=== PATIENT | male | born 1945 | race Caucasian/White ===

== ENCOUNTER → 2017-04-28 | Outpatient (REF) | payer OTHER ==
[2017-04-28 18:44] LABS: FERRITIN 5 NG/ML (26-388)
== END ==
LOC: M LAB REF 17:23
DX: D64.9 Anemia, unspecified (principal)
CPT/HCPCS: 82728

== ENCOUNTER → 2017-08-13 | Outpatient (REF) | payer OTHER ==
[2017-08-15 08:06] LABS: LDL DIRECT 57 mg/dL (0-99)
== END ==
LOC: M LAB REF 19:30
DX: E78.00 Pure hypercholesterolemia, unspecified (principal)
CPT/HCPCS: 83721

== ENCOUNTER → 2017-09-21 | Outpatient (REF) | payer OTHER ==
[2017-09-21 20:04] LABS: FERRITIN 22 NG/ML (26-388)
== END ==
LOC: M LAB REF 18:45
DX: D50.9 Iron deficiency anemia, unspecified (principal)
CPT/HCPCS: 82728

== ENCOUNTER → 2018-01-20 | Outpatient (REF) | payer OTHER ==
[2018-01-23 00:06] LABS: LDL DIRECT 70 mg/dL (0-99)
== END ==
LOC: M LAB REF 16:16
DX: E78.00 Pure hypercholesterolemia, unspecified (principal)
CPT/HCPCS: 83721

== ENCOUNTER 2018-12-30 08:56 | Day surgery (SDC) | payer MEDICARE ==
[~2018-12-30] VITALS: Ht 182.9 cm; Wt 111.1 kg
[~2018-12-30 08:56] MED LIST: ALIG4CAP PO; AMIL5TAB4 PO; ASPI81TA26 PO; ATOR1TAB21 PO; CALC600C3 PO; CENT1TAB PO; FAMO40TA3 PO; FENO145T13 PO; FERR325T3 PO; GLIP5TAB20 PO; KP F1200 PO; LEVE1INJ5 SC; LISI-538 PO; LOPR1TAB6 PO; MAGN64TASA PO; METF500T13 PO; NEUR300C PO; NS 1,000 ML IV ONE; OMEP-218 PO; TRUL0.5I SC
[2018-12-30] MEDS ORDERED: LIDOCAINE 2% INJ 100 MG/5 ML SDV (FOR ANES.) As Ordered ONE (09:37)
[2018-12-30] MEDS ORDERED: PROPOFOL 200 MG/20 ML VIAL As Ordered ONE (09:37)
--- NOTE | 2018-12-30 10:36 | ROOR ---
Patient Name: Campos Jauregui Procedure Date: 12/30/2018 10:16 AM Date of : 1945 Age: 73 [facility]: [facility] Gender: Male Note Status: Finalized Procedure: Colonoscopy Indications: Screening for colorectal malignant neoplasm Providers: Cosmo Morton Jr, MD Referring MD: Kaz Gutierrez MD Requesting Provider: Medicines: Propofol per Anesthesia Complications: No immediate complications. Procedure: Pre-Anesthesia Assessment: - Prior to the procedure, a History and Physical was performed, and patient medications and allergies were reviewed. The patient is competent. The risks and benefits of the procedure and the sedation options and risks were discussed with the patient. All questions were answered and informed consent was obtained. Patient identification and proposed procedure were verified by the physician and the nurse in the pre-procedure area and in the procedure room. Mental Status Examination: alert and oriented. Airway Examination: normal oropharyngeal airway and neck mobility. Respiratory Examination: clear to auscultation. CV Examination: normal. ASA Grade Assessment: II - A patient with mild systemic disease. After reviewing the risks and benefits, the patient was deemed in satisfactory condition to undergo the procedure. The anesthesia plan was to use moderate sedation / analgesia (conscious sedation). Immediately prior to administration of medications, the patient was re-assessed for adequacy to receive sedatives. The heart rate, respiratory rate, oxygen saturations, blood pressure, adequacy of pulmonary ventilation, and response to care were monitored throughout the procedure. The physical status of the patient was re-assessed after the procedure. The Colonoscope was introduced through the anus and advanced to the cecum, identified by appendiceal orifice and ileocecal valve. The colonoscopy was performed without difficulty. The patient tolerated the procedure well. The quality of the bowel preparation was adequate. Findings: The rectum, recto-sigmoid colon, descending colon, transverse colon, ascending colon, appendiceal orifice and ileocecal valve appeared normal. A diminutive polyp was found in the cecum. The polyp was removed with a jumbo cold forceps. Resection and retrieval were complete. A few small and large-mouthed diverticula were found in the sigmoid colon, ascending colon and cecum. Non-bleeding internal hemorrhoids were found during endoscopy. The hemorrhoids were moderate. Impression: - The rectum, recto-sigmoid colon, descending colon, transverse colon, ascending colon, appendiceal orifice and ileocecal valve are normal. - One diminutive polyp in the cecum, removed with a jumbo cold forceps. Resected and retrieved. - Diverticulosis in the sigmoid colon. - Non-bleeding internal hemorrhoids. Recommendation: - Repeat colonoscopy in 5-10 years for surveillance based on pathology results. - Telephone my office for pathology results in 1 week. Cosmo Morton MD Cosmo Morton Jr, MD 12/30/2018 10:35:54 AM Electronically signed by Cosmo Morton Jr, MD Number of Addenda: 0 Note Initiated On: 12/30/2018 10:16 AM Estimated Blood Loss: Estimated blood loss: none.
[2018-12-30 10:50] VITALS: BP 145/73
== END 2018-12-30 11:02 | disposition home or self-care (01) ==
LOC: M OPP 08:56
PROVIDERS: ATTEND Surgery
DX: Z12.11 Encounter for screening for malignant neoplasm of colon (principal); K64.8 Other hemorrhoids; D12.0 Benign neoplasm of cecum; K57.30 Diverticulosis of large intestine without perforation or abscess without bleeding; I10 Essential (primary) hypertension; Z79.4 Long term (current) use of insulin; Z79.82 Long term (current) use of aspirin; Z79.899 Other long term (current) drug therapy; Z86.73 Personal history of transient ischemic attack (TIA), and cerebral infarction without residual deficits

== ENCOUNTER → 2021-01-16 | Outpatient (CLI) | payer MEDICARE ==
[~2021-01-16] MED LIST changes: -FENO145T13 PO; +FENO145T7 PO; -LISI-538 PO; +LISI20TA33 PO; -NS 1,000 ML IV ONE
--- NOTE | 2021-01-16 12:57 | REP ---
INDICATION: LUNG CA SCREENING. COMPARISON: None. TECHNIQUE: Axial noncontrast images from the thoracic inlet to the upper abdomen using low-dose lung screening technique (LDCT). As per the protocol only lung window images were sent to the read station for interpretation. FINDINGS: There is a 6 mm sized ground-glass nodule in the inferior right upper lobe. There is a parenchymal bulla in the right middle lobe. There is an asymmetric density in the inferior right middle lobe. There are bibasilar asymmetric densities medially. There is an incidental calcified granuloma in the left lower lobe. Grossly, the mediastinum and pulmonary neel are within normal limits. Grossly, the imaged upper abdomen and imaged osseous structures are within normal limits. IMPRESSION: 1. 6 mm sized ground-glass nodule right upper lobe. Lung rads category 2. Yearly screening is recommended for that particular nodule. 2. Chronic lung field changes as described above likely fibrotic and/or subsegmental atelectatic changes. There is no revised Fleischner society criteria on the recommendation for follow-up of such findings, however, since are no priors comparison I would recommend a short-term three-month follow-up chest CT. <Electronically signed by Maurilio Lucas > 01/16/21 [id number]
== END ==
LOC: M RAD 09:02
PROVIDERS: ATTEND Family Medicine
DX: Z12.2 Encounter for screening for malignant neoplasm of respiratory organs (principal); Z87.891 Personal history of nicotine dependence; R91.1 Solitary pulmonary nodule; J84.10 Pulmonary fibrosis, unspecified; R91.8 Other nonspecific abnormal finding of lung field

== ENCOUNTER → 2021-04-18 | Outpatient (CLI) | payer MEDICARE ==
[~2021-04-18] MED LIST changes: +OMEP-173 PO; -OMEP-218 PO
== END ==
LOC: M RAD 09:45
PROVIDERS: ATTEND Family Medicine
DX: R91.1 Solitary pulmonary nodule (principal); J98.11 Atelectasis; I25.10 Atherosclerotic heart disease of native coronary artery without angina pectoris; K80.20 Calculus of gallbladder without cholecystitis without obstruction; J43.9 Emphysema, unspecified

== ENCOUNTER → 2022-05-15 | Outpatient (CLI) | payer MEDICARE ==
[~2022-05-15] MED LIST changes: +INSU100I6 SC; +ISOVUE-370 76% 100ML VIAL As Ordered ONE; -LEVE1INJ5 SC
== END ==
LOC: M RAD 11:07
PROVIDERS: ATTEND Family Medicine
DX: J43.9 Emphysema, unspecified (principal); J47.9 Bronchiectasis, uncomplicated; I25.10 Atherosclerotic heart disease of native coronary artery without angina pectoris; I70.0 Atherosclerosis of aorta
CPT/HCPCS: 71260; Q9967

== ENCOUNTER → 2022-06-05 | Outpatient (CLI) | payer MEDICARE ==
[~2022-06-05] MED LIST changes: -ISOVUE-370 76% 100ML VIAL As Ordered ONE
[2022-06-05 12:47] LABS: HEMATOCRIT 46.8 % (42.0-52.0); HEMOGLOBIN 14.6 g/dl (13.5-17.5); MEAN CORPUSCULAR HEMOGLOBIN 29.7 pg (27.0-33.0); MEAN CORPUSCULAR HGB CONC 31.2 g/dl (32.0-36.5); MEAN CORPUSCULAR VOLUME 95.1 fl (80.0-96.0); PLATELET COUNT, AUTOMATED 177 10^3/uL (150-450); RED BLOOD COUNT 4.92 10^6/uL (4.30-6.10); WHITE BLOOD COUNT 6.1 10^3/uL (4.0-10.0)
[2022-06-05 13:13] LABS: BLOOD UREA NITROGEN 22 MG/DL (9-23); CALCIUM LEVEL 9.5 MG/DL (8.3-10.6); CARBON DIOXIDE LEVEL 26 MMOL/L (20-31); CHLORIDE LEVEL 107 MMOL/L (98-107); CREATININE FOR GFR 0.99 MG/DL (0.70-1.30); GLOMERULAR FILTRATION RATE > 60.0 (>42); GLUCOSE, FASTING 155 MG/DL (74-106); MAGNESIUM LEVEL 1.5 MG/DL (1.8-2.4); POTASSIUM SERUM 4.9 MMOL/L (3.5-5.1); SODIUM LEVEL 141 MMOL/L (136-145)
[2022-06-05 13:15] LABS: THYROID STIMULATING HORMONE 2.441 uIU/ML (0.55-4.78)
== END ==
LOC: M LAB 11:53
PROVIDERS: ATTEND Physician Assistant
DX: I48.91 Unspecified atrial fibrillation (principal)

== ENCOUNTER → 2022-07-07 | Outpatient (CLI) | payer MEDICARE ==
[2022-07-07 12:39] LABS: HEMATOCRIT 48.1 % (42.0-52.0); HEMOGLOBIN 15.3 g/dl (13.5-17.5); MEAN CORPUSCULAR HEMOGLOBIN 29.8 pg (27.0-33.0); MEAN CORPUSCULAR HGB CONC 31.8 g/dl (32.0-36.5); MEAN CORPUSCULAR VOLUME 93.6 fl (80.0-96.0); PLATELET COUNT, AUTOMATED 172 10^3/uL (150-450); RED BLOOD COUNT 5.14 10^6/uL (4.30-6.10); WHITE BLOOD COUNT 6.1 10^3/uL (4.0-10.0)
[2022-07-07 13:13] LABS: BLOOD UREA NITROGEN 17 MG/DL (9-23); CALCIUM LEVEL 8.9 MG/DL (8.3-10.6); CARBON DIOXIDE LEVEL 26 MMOL/L (20-31); CHLORIDE LEVEL 106 MMOL/L (98-107); CREATININE FOR GFR 0.85 MG/DL (0.70-1.30); GLOMERULAR FILTRATION RATE > 60.0 (>42); GLUCOSE, FASTING 193 MG/DL (74-106); MAGNESIUM LEVEL 1.4 MG/DL (1.8-2.4); POTASSIUM SERUM 4.7 MMOL/L (3.5-5.1); SODIUM LEVEL 140 MMOL/L (136-145)
== END ==
LOC: M LAB 11:33
PROVIDERS: ATTEND Physician Assistant
DX: I48.91 Unspecified atrial fibrillation (principal)

== ENCOUNTER → 2023-10-13 | Outpatient (CLI) | payer OTHER | LOC: M RAD 13:46 | PROVIDERS: ATTEND Family Medicine | DX: Z12.2 Encounter for screening for malignant neoplasm of respiratory organs (principal); F17.211 Nicotine dependence, cigarettes, in remission; J47.9 Bronchiectasis, uncomplicated; J43.2 Centrilobular emphysema; J81.0 Acute pulmonary edema; I51.7 Cardiomegaly; I25.10 Atherosclerotic heart disease of native coronary artery without angina pectoris; I70.0 Atherosclerosis of aorta; N62 Hypertrophy of breast ==

== ENCOUNTER 2024-07-28 11:04 | Day surgery (SDC) | payer OTHER ==
[~2024-07-28] VITALS: Ht 182.9 cm; Wt 100.1 kg
[~2024-07-28 11:04] MED LIST changes: -ALIG4CAP PO; +ALIG4CAP3 PO; +DIGO0.253 PO; +ELIQ5TAB PO; +GLIP-318 PO; -GLIP5TAB20 PO; +GLYCOPYRROLATE INJ 0.2 MG/ML 2 ML VIAL As Ordered ONE; +JARD1TAB3 PO; +LIDOCAINE 2% 100MG/5ML SDV (FOR ANES.) As Ordered ONE; +TRES1INJ2 SC; +propofoL 200 MG/20 ML VIAL As Ordered ONE
[2024-07-28 12:42] VITALS: TEMP 97
[2024-07-28 13:02] VITALS: BP 108/70; O2SAT 99
== END 2024-07-28 13:11 | disposition home or self-care (01) ==
LOC: M OPP 11:04
PROVIDERS: ATTEND Surgery
DX: D12.6 Benign neoplasm of colon, unspecified (principal); K57.30 Diverticulosis of large intestine without perforation or abscess without bleeding; Z86.0100 Personal history of colon polyps, unspecified; I48.91 Unspecified atrial fibrillation; Z86.73 Personal history of transient ischemic attack (TIA), and cerebral infarction without residual deficits; Z79.82 Long term (current) use of aspirin; Z79.01 Long term (current) use of anticoagulants; Z79.84 Long term (current) use of oral hypoglycemic drugs; Z79.4 Long term (current) use of insulin; Z79.85 Long-term (current) use of injectable non-insulin antidiabetic drugs; Z79.899 Other long term (current) drug therapy; Z87.891 Personal history of nicotine dependence

== ENCOUNTER → 2024-10-13 | Outpatient (CLI) | payer OTHER ==
[~2024-10-13] MED LIST changes: -GLYCOPYRROLATE INJ 0.2 MG/ML 2 ML VIAL As Ordered ONE; -LIDOCAINE 2% 100MG/5ML SDV (FOR ANES.) As Ordered ONE; -propofoL 200 MG/20 ML VIAL As Ordered ONE
== END ==
LOC: M RAD 13:23
PROVIDERS: ATTEND Family Medicine
DX: F17.211 Nicotine dependence, cigarettes, in remission (principal); J43.9 Emphysema, unspecified; N62 Hypertrophy of breast; K80.20 Calculus of gallbladder without cholecystitis without obstruction